=== PATIENT | female | born 1990 | race Caucasian/White ===

== ENCOUNTER 2016-08-03 09:12 | Emergency (ER) | payer OTHER ==
[~2016-08-03 09:12] MED LIST: CLINDAMYCIN HC300 MG PO; HYDROCODON-ACE1 EAC9 PO; NO MEDICATIONS; NU-GAUZE1 BANDAG6 TP; PHENERGAN25 MG PO
== END 2016-08-03 10:56 | disposition home or self-care (01) ==
LOC: CED 09:12
DX: K04.7 Periapical abscess without sinus (principal); K02.9 Dental caries, unspecified; R51 Headache; F17.200 Nicotine dependence, unspecified, uncomplicated; Z88.2 Allergy status to sulfonamides
CPT/HCPCS: 96372; 99282; J1885

== ENCOUNTER 2016-08-07 08:41 | Emergency (ER) | payer OTHER ==
--- NOTE | ~2016-08-07 | US98 ---
[facility] A Service of [facility] RADIOLOGY TEXT RESULTS PATIENT: VARGHESEMAY LOCATION: [facility] : [birth year] UNIT #: [id number] AGE: [address]: Nichole Ty APRN SEX: F ORDER DR: [id number] [facility] [address] [place], [place] [address] [id number] MR#: [id number] Acc #: [id number] NAME: VARGHESE MAY : 1990 SEX: F STUDY DATE/TIME: 08/07/2016 11:38 UNIT: [facility] ROOM: STUDY DESCRIPTION: US Pelvic Non-OB Complete Attending Physician: Nichole Ty A.P.R.N. Ordering Physician: Ed Doctor [id number] [facility] Primary Care Physician: Primary Care Physician No MEDICAL IMAGING REPORT This report is preliminary unless electronic signature is present EXAM Ultrasound pelvis 08/07/2016 HISTORY Pain. Left adnexal pain for 4 days. FINDINGS Real-time ultrasonography pelvic structures performed transabdominally and transvaginally. Transvaginal imaging utilized for better visualization of uterine and adnexal structures. The uterus measures 7.0 cm x 4.58 cm x 3.15 cm. Small nabothian cysts seen at level of uterine cervix. The myometrium is otherwise unremarkable. Small amount of free fluid in the pelvis. Likely physiologic in nature and related to menstrual cycle. The endometrial echo complex measures 4.0 mm in thickness. Normal value. The right ovary shows arterial flow. Right ovary measures 2.42 cm x 1.93 cm x 2.05 cm. Follicular cysts in the right ovary. Left ovary shows follicular cysts as well. It measures 4.01 cm x 2.80 cm x 2.25 cm. In the left ovary there is a hypoechoic but not anechoic structure measuring 1.51 cm x 1.29 cm x 1.35 cm. Likely complicated physiologic cyst, perhaps collapsing dominant follicle for this menstrual cycle. Consider 6-week ultrasound followup to confirm resolution. There are follicular ovarian cysts bilaterally. IMPRESSION 1. Vascular flow in the bilateral ovaries. Bilateral follicular ovarian cysts. Complicated hypoechoic structure in the left ovary measuring up to 1.5 cm in diameter likely collapsing dominant follicle for this menstrual cycle. Consider 6-week followup ultrasound to confirm resolution or decreasing size. 2. Nabothian cysts at uterine cervix. Myometrium otherwise unremarkable. Endometrial echo complex normal. 3. Small amount of free fluid in the pelvis. Likely physiologic in nature. [facility]. [facility] A Service of [facility] RADIOLOGY TEXT RESULTS PATIENT: VARGHESE LOCATION: [facility] : [birth year] UNIT #: [id number] AGE: [address]: Nichole Ty APRN SEX: F ORDER DR: Dictated by... Miky Villa M.D. THIS IS AN ELECTRONICALLY VERIFIED REPORT Miky Villa M.D. at 08/08/2016 6:42 PM Jose TD: 08/07/2016 14:15 JOB #: [id number] MEDICAL IMAGING REPORT Page 1 of 1 COPY
[2016-08-07 09:37] LABS: BASOPHIL# 0.1 X10e3 (0-0.3); EOSINOPHIL# 0.4 X10e3 (0-0.7); EOSINOPHIL% 6.5 % (0.0-7.0); HEMATOCRIT 38.3 % (35.0-45.0); HEMOGLOBIN 12.6 gm/dL (12.0-16.0); LYMPHOCYTE# 2.4 X10e3 (1.0-3.5); LYMPHOCYTE% 42.3 % (17.0-45.0); MEAN CELL VOLUME 91.2 FL (83-96); MEAN CORPUSCULAR HEMOGLOBIN 30.1 PG (28-34); MEAN CORPUSCULAR HGB CONC 32.9 g/dL (30-36); MEAN PLATELET VOLUME 7.6 FL (6.5-11.5); MONOCYTE# 0.4 X10e3 (0-1.0); MONOCYTE% 7.9 % (3.0-12.0); NEUTROPHIL# 2.4 X10e3 (1.5-7.1); NEUTROPHIL% 42.3 % (40-75); PLATELET COUNT 275 X10e3 (140-420); RED BLOOD COUNT 4.19 X10e (3.90-5.30); RED CELL DISTRIBUTION WIDTH 12.9 % (11.0-15.5); WHITE BLOOD COUNT 5.6 X10e3 (4.0-10.5)
[2016-08-07 09:40] LABS: DIFF IND NO
[2016-08-07 10:01] LABS: ALBUMIN SERUM 3.9 g/dL (3.5-5.0); BILIRUBIN, DIRECT 0.1 mg/dL (0.0-0.2); BILIRUBIN,INDIRECT 0.1 mg/dL (0.0-0.9); BILIRUBIN,TOTAL 0.2 mg/dL (0.2-2.0); BUN/CREATININE RATIO 7.14; CREATININE SERUM 0.7 mg/dL (0.6-1.4); GLOM FILT RATE Estimated 121.3 mL/min (>60); POTASSIUM 3.8 mmol/L (3.5-5.1); PROTEIN TOTAL SERUM 6.9 g/dL (6.0-8.3)
[2016-08-07 10:29] LABS: URINE SOURCE CLEAN CATCH
[2016-08-07 10:32] LABS: URINE APPEARANCE CLOUDY; URINE BILIRUBIN NEG (NEG); URINE BLOOD NEG (NEG); URINE COLOR YELLOW; URINE GLUCOSE NEG (NEG); URINE KETONE NEG (NEG); URINE LEUKOCYTE ESTERASE NEG (NEG); URINE NITRATE NEG (NEG); URINE PH 5.5 (5-8); URINE PROTEIN NEG (NEG); URINE SPECIFIC GRAVITY 1.021 (1.003-1.035)
[2016-08-07 10:35] LABS: CULTURE INDICATED? NO
[2016-08-08 20:42] LABS: CHLAMYDIA TRACH Not Detected (Not Detected); N GONOR Not Detected (Not Detected)
== END 2016-08-07 13:58 | disposition home or self-care (01) ==
LOC: CED 08:41
PROVIDERS: Nurse Practitioner
DX: N76.0 Acute vaginitis (principal); N83.202 Unspecified ovarian cyst, left side; R19.7 Diarrhea, unspecified; M54.9 Dorsalgia, unspecified; F17.210 Nicotine dependence, cigarettes, uncomplicated; Z86.14 Personal history of Methicillin resistant Staphylococcus aureus infection; Z88.2 Allergy status to sulfonamides
CPT/HCPCS: 36415; 76830; 76856; 80048; 80076; 81003; 82150; 83690; 84703; 85025; 87491; 87591; 87808; 87905; 96361; 96374; 96375; 99284; J1885; J2405